=== PATIENT | female | born 2000 | race Caucasian/White ===

== ENCOUNTER 2021-11-06 19:18 | Emergency (ER) | payer SELFPAY ==
[2021-11-06 19:55] VITALS: BP 108/75
--- NOTE | 2021-11-06 22:41 | XRay Report ---
XR chest routine 2V INDICATION / CLINICAL INFORMATION: cp. COMPARISON: None available. FINDINGS: SUPPORT DEVICES: None. HEART /PULMONARY VASCULATURE: No significant abnormality. LUNGS / PLEURA: No significant pulmonary or pleural abnormality. No pneumothorax. ADDITIONAL FINDINGS: No significant additional findings. IMPRESSION: 1. No acute findings. Signer Name: Dash Wallis MD Signed: 11/06/2021 10:36 PM Workstation Name: [id number]
--- NOTE | 2021-11-07 00:33 | Emergency Department Report ---
ED General Adult HPI - General Chief complaint: Anxiety Stated complaint: ANXIETY Time Seen by Provider: 11/06/21 22:00 Source: patient Mode of arrival: Ambulatory Limitations: No Limitations - History of Present Illness Initial comments: 30-year-old female with asthma department complaining of pain to the chest with palpation and deep breath of unknown etiology started earlier today. Reports no cough, congestion, fever, chills, sweats. No hemoptysis nontender hematochezia -: Gradual Location: chest Radiation: non-radiation Quality: burning, aching Consistency: constant Improves with: none Worsens with: movement (Deep breaths, turning palpation) Associated Symptoms: denies other symptoms. denies: confusion, chest pain, diaphoresis, malaise, nausea/vomiting, syncope, weakness Treatments Prior to Arrival: none - Related Data Previous Rx's Medication Instructions Recorded Last Taken Type Ketorolac [Toradol] 10 mg PO Q6H PRN #14 11/07/21 Unknown Rx Allergies Allergy/AdvReac Type Severity Reaction Status Date / Time No Known Allergies Allergy Verified 11/06/21 19:55 ED Review of Systems ROS: Stated complaint: ANXIETY Other details as noted in HPI Comment: All other systems reviewed and negative ED Past Medical Hx - Medications Home Medications: Home Medications Medication Instructions Recorded Confirmed Last Taken Type Ketorolac [Toradol] 10 mg PO Q6H PRN #14 11/07/21 Unknown Rx ED Physical Exam - General Limitations: No Limitations General appearance: alert, in no apparent distress - Head Head exam: Present: atraumatic, normocephalic - Eye Eye exam: Present: normal appearance, PERRL - ENT ENT exam: Present: normal exam, mucous membranes moist - Neck Neck exam: Present: normal inspection - Respiratory Respiratory exam: Present: normal lung sounds bilaterally, chest wall tenderne ss. Absent: respiratory distress, rales, rhonchi, stridor, decreased breath sounds, prolonged expiratory - Cardiovascular Cardiovascular Exam: Present: regular rate, normal rhythm. Absent: systolic murmur, diastolic murmur, rubs, gallop - GI/Abdominal GI/Abdominal exam: Present: soft, normal bowel sounds - Extremities Exam Extremities exam: Present: normal inspection - Back Exam Back exam: Present: normal inspection - Neurological Exam Neurological exam: Present: alert, oriented X3 - Psychiatric Psychiatric exam: Present: normal affect, normal mood - Skin Skin exam: Present: warm, dry, intact, normal color. Absent: rash ED Course Vital Signs 11/06/21 19:19 Temperature 98.3 F Pulse Rate 71 Respiratory 20 Rate Blood Pressure 108/75 [Right] O2 Sat by Pulse 99 Oximetry ED Medical Decision Making - Radiology Data Radiology results: report reviewed [facility] [address] [place] [address] XRay Report Signed Patient: DANTE KERR MR#: [id number] : 2000 Acct:[id number] Age/Sex: 20 / F ADM Date: 11/06/21 Loc: ED Attending Dr: Ordering Physician: MARK SOTO Date of Service: 11/06/21 Procedure(s): XR chest routine 2V Accession Number(s): [id number] cc: MARK SOTO Fluoro Time In Minutes: XR chest routine 2V INDICATION / CLINICAL INFORMATION: cp. COMPARISON: None available. FINDINGS: SUPPORT DEVICES: None. HEART /PULMONARY VASCULATURE: No significant abnormality. LUNGS / PLEURA: No significant pulmonary or pleural abnormality. No pneumothorax. ADDITIONAL FINDINGS: No significant additional findings. IMPRESSION: 1. No acute findings. Signer Name: Maribell Wallis MD Signed: 11/06/2021 10:36 PM Workstation Name: [id number] Transcribed By: JOSE Dictated By: MARIBELL WALLIS MD Electronically Authenticated By: MARIBELL WALLIS MD Signed Date/Time: 11/06/212235 DD/ 35 TD/TT: - Medical Decision Making This patient presents with chest pain that is very unlikely angina or acute coronary syndrome. The emergency department evaluation has not identified any cause for suspicion that this chest pain has a cardiac etiology. Based on their history, EKG (which showed no evidence of ischemia or infarction) and imaging, in addition to the patient's physical exam, I see no evidence at this time for a malignant etiology for the patient's chest pain. There is no acute evidence for pulmonary embolus, acute myocardial infarction, pneumothorax, Boerhaeve syndrome, cardiac tamponade, thoracic artery dissection, or any other emergent cardiac, pulmonary or aortic pathology. Given the low pre-test probability for cardiac etiology of chest pain and the absence of any sign of ischemia or infarction, discharge for outpatient follow-up and further evaluation is reasonable. I have explained to the patient that even though a cardiac problem is very unlikely, follow-up and further testing is required to reduce further the already small uncertainty that exists. Other life-threatening diagnoses have been considered. The patient understands the need to return immediately if their symptoms worsen or they develop any new symptoms, and not to engage in any significant exertional activity until follow-up is obtained. Critical care attestation.: If time is entered above; I have spent that time in minutes in the direct care of this critically ill patient, excluding procedure time. ED Disposition Clinical Impression: Chest pain Disposition: HOME / SELF CARE / HOMELESS Is pt being admited?: No Does the pt Need Aspirin: No Condition: Stable Instructions: Nonspecific Chest Pain, Adult, Costochondritis Prescriptions: Ketorolac [Toradol] 10 mg PO Q6H PRN #14 PRN Reason: Pain Referrals: MARIAM HINES MD [Staff Physician] - 3-5 Days
--- NOTE | 2021-11-08 13:09 | Electrocardiograph Report ---
[facility] Test Date: 2021-11-06 Test Time: 19:25:09 Pat Name: DANTE KERR Department: Room: Gender: F Research Methods Instructor: OCRNELIUS : 2000 Requested By: ELENA BYRD Order Number: [id number] Reading MD: Brian Kim Measurements Intervals [place] Rate: 73 P: 45 AR: 131 QRS: 59 QRSD: 81 T: 18 QT: 392 QTc: 432 Interpretive Statements Sinus rhythm No previous ECG available for comparison Electronically Signed On 11-08-2021 13:09:20 EDT by Brian Kim
== END 2021-11-07 00:45 | disposition home or self-care (01) ==
LOC: ED 19:18
DX: R07.9 Chest pain, unspecified (principal)
CPT/HCPCS: 71046; 93005; 99283